=== PATIENT | female | born 1995 ===

== ENCOUNTER 2018-03-28 19:56 | Emergency (ER) | payer MEDICAID ==
[~2018-03-28] VITALS: Ht 152.4 cm; Wt 46.3 kg
[2018-03-28] MEDS ORDERED: NKM (20:16)
[2018-03-28 21:05] LABS: APPEARANCE,URINE CLEAR; BILIRUBIN, URINE NEGATIVE (NEGATIVE); COLOR,URINE PALE YELLOW; GLUCOSE, URINE (UA) NEGATIVE (NEGATIVE); KETONES,URINE 4+ (NEGATIVE); LEUKOCYTE ESTERASE ,URINE NEGATIVE (NEGATIVE); NITRITE,URINE NEGATIVE (NEGATIVE); PH,URINE 9 (4.5-8.0); PROTEIN,URINE 1+ (NEGATIVE); UROBILINOGEN,URINE NORMAL MG/DL (0.0-1.0)
[2018-03-28 21:10] LABS: HEMATOCRIT 42.9 % (37.0-47.0); HEMOGLOBIN 13.8 G/DL (12.0-16.0); MEAN CORPUSCULAR VOLUME 82 FL (80-99); PLATELET COUNT 288 K/UL (150-450); RED BLOOD COUNT 5.22 M/UL (4.20-5.40); RED CELL DISTRIBUTION WIDTH 11.7 % (11.6-14.8); WHITE BLOOD COUNT 15.9 K/UL (4.8-10.8)
[2018-03-28] MEDS ORDERED: cefTRIAXone 1 GM in NS 55 ML IVPB ONE (21:30)
--- NOTE | 2018-03-28 21:32 | Emergency Room Report ---
History of Present Illness General Chief Complaint: Vomiting Source: Patient (Iraj Meza MD) Present Illness HPI 22-year-old female presents ED for evaluation of abdominal pain and nausea and vomiting. States this is persisting for the last several weeks. Mother at bedside states she is taking the patient to multiple ERs. Patient was told that she has "gastritis". Pain is dull, epigastric, 7 out of 10, nonradiating. Patient also states she is constipated. Denies chest pain or shortness of breath. Denies fevers or chills. Patient admits to marijuana use. No other aggravating or relieving factors. Denies any other associated symptoms (Iraj Meza MD) Allergies: Coded Allergies: No Known Allergies (Unverified , 03/28/18) Patient History Past Medical History: none Past Surgical History: none Pertinent Family History: none Social History: Denies: smoking, alcohol use, drug use Last Menstrual Period: last week Now: No Immunizations: UTD Reviewed Nursing Documentation: PMH: Agreed; PSxH: Agreed (Iraj Meza MD) Nursing Documentation-PMH Past Medical History: No Stated History (Iraj Meza MD) Review of Systems All Other Systems: negative except mentioned in HPI (Iraj Meza MD) Physical Exam Vital Signs Date Time Temp Pulse Resp B/P (MAP) Pulse Ox O2 Delivery O2 Flow Rate FiO2 03/28/18 20:11 98.2 106 20 132/85 100 Room Air 98.2 Sp02 EP Interpretation: reviewed, normal General Appearance: no apparent distress, alert, GCS 15, non-toxic Head: normocephalic, atraumatic Eyes: bilateral eye normal inspection, bilateral eye PERRL ENT: hearing grossly normal, normal pharynx, no angioedema, normal voice Neck: full range of motion, supple/symm/no masses Respiratory: chest non-tender, lungs clear, normal breath sounds, speaking full sentences Cardiovascular #1: regular rate, rhythm, no edema Cardiovascular #2: 2+ carotid (R), 2+ carotid (L), 2+ radial (R), 2+ radial (L) , 2+ dorsalis pedis (R), 2+ dorsalis pedis (L) Gastrointestinal: normal bowel sounds, soft, non-distended, no guarding, no rebound, tenderness - epigastric Rectal: deferred Genitourinary: normal inspection, no CVA tenderness Musculoskeletal: back normal, gait/station normal, normal range of motion, non- tender Neurologic: alert, oriented x3, responsive, motor strength/tone normal, sensory intact, speech normal Psychiatric: judgement/insight normal, memory normal, mood/affect normal, no suicidal/homicidal ideation Reflexes: 3+ bicep (R), 3+ bicep (L), 3+ tricep (R), 3+ tricep (L), 3+ knee (R) , 3+ knee (L) Skin: normal color, no rash, warm/dry, well hydrated Lymphatic: no adenopathy (Iraj Meza MD) Medical Decision Making Diagnostic Impression: Primary Impression: Cyclical vomiting syndrome Qualified Codes: G43.A0 - Cyclical vomiting, not intractable Additional Impressions: UTI (urinary tract infection) Qualified Codes: N30.00 - Acute cystitis without hematuria Dehydration ER Course Patient signout to me. She presents with symptoms consistent with cyclic vomiting syndrome. His been ongoing for about a year. She has not had outpatient referred to see a divorce attorney for further workup. She does not believe it is caused by her marijuana use. No evidence of any obstruction. No evidence of an acute abdomen. She felt better now. Tolerating liquids. her elevated white count an acute stress response. We'll discharge home. (BLU MARROQUIN M.D.) Other X-Ray Diagnostic Results Other X-Ray Diagnostic Results : X-Ray ordered: KUB # of Views/Limited Vs Complete: 2 View Indication: Pain EP Interpretation: Yes Interpretation: no dislocation, no soft tissue swelling, no fractures, nonspecific bowel gas Impression: No acute disease Electronically Signed by: Blu Marroquin MD (BLU MARROQUIN M.D.) Last Vital Signs Date Time Temp Pulse Resp B/P (MAP) Pulse Ox O2 Delivery O2 Flow Rate FiO2 03/28/18 20:11 98.2 106 20 132/85 100 Room Air 98.2 Status: improved (Iraj Meza MD) Status: improved (BLU MARROQUIN M.D.) Disposition: HOME, SELF-CARE Condition: Stable Scripts Cephalexin* (KEFLEX*) 500 Mg Capsule 500 MG ORAL EVERY 6 HOURS, #28 CAP Prov: Iraj Meza MD 03/28/18 Ranitidine Hcl* (ZANTAC*) 150 Mg Tablet 150 MG ORAL TWICE A DAY, #30 TAB Prov: Iraj Meza MD 03/28/18 Ondansetron Odt* (ZOFRAN ODT*) 4 Mg Tab.rapdis 4 MG BC EVERY 6 HOURS PRN for Nausea & Vomiting, #30 TAB 0 Refills Prov: Iraj Meza MD 03/28/18 Iraj Meza MD Mar 28, 2018 21:32 BLU MARROQUIN M.D. Mar 28, 2018 22:13
[2018-03-28 21:44] LABS: ANION GAP 13 mmol/L (5-15); BLOOD UREA NITROGEN 10 mg/dL (7-18); CALCIUM 10.1 MG/DL (8.5-10.1); CARBON DIOXIDE 23 MMOL/L (21-32); CHLORIDE 102 MMOL/L (98-107); CREATININE 0.9 MG/DL (0.55-1.30); POTASSIUM 4.1 MMOL/L (3.5-5.1); SODIUM 138 MMOL/L (136-145)
[2018-03-28 21:48] LABS: ALANINE AMINOTRANSFERASE 23 U/L (12-78); ALBUMIN 4.9 G/DL (3.4-5.0); ALBUMIN/GLOBULIN RATIO 1.3 (1.0-2.7); ALKALINE PHOSPHATASE 99 U/L (46-116); ASPARTATE AMINO TRANSFERASE 20 U/L (15-37); BILIRUBIN,TOTAL 0.5 MG/DL (0.2-1.0)
[2018-03-28] MEDS ORDERED: RANITIDINE HCL150 MG ORAL (21:52)
[2018-03-28] MEDS ORDERED: ONDANSETRON ODT4 MG BC (21:52)
[2018-03-28] MEDS ORDERED: CEPHALEXIN500 MG ORAL (21:52)
[2018-03-28 22:24] VITALS: BP 101/61
--- NOTE | 2018-03-28 22:37 | Diagnostic Imaging Report ---
EXAM: XR Abdomen, 2 Views CLINICAL HISTORY: ABD PAIN TECHNIQUE: Frontal view of the abdomen/pelvis with upright view of the abdomen. COMPARISON: No relevant prior studies available. FINDINGS: Intraperitoneal space: No free air. Gastrointestinal tract: Nonspecific bowel gas pattern. No dilation. Bones/joints: Unremarkable. IMPRESSION: No evidence of free air. Nonspecific bowel gas pattern. No radiographic evidence of bowel obstruction.
[2018-03-28 22:44] VITALS: BP 101/61
== END 2018-03-28 22:45 | disposition home or self-care (01) ==
LOC: EMR 20:45
DX: G43.A0 Cyclical vomiting, in migraine, not intractable (principal); N39.0 Urinary tract infection, site not specified; E86.0 Dehydration
CPT/HCPCS: 36415; 74018; 80053; 80307; 81003; 81025; 83690; 85007; 85025; 87086; 96361; 96365; 96375; 99284; J0696; J2405; S0028